=== PATIENT | male | born 1940 | race Caucasian/White ===

== ENCOUNTER 2018-11-07 15:35 | Emergency (ER) | payer OTHER ==
[~2018-11-07] VITALS: Ht 177.8 cm; Wt 65.8 kg
[2018-11-07 16:47] LABS: BASOPHILS 0.5 % (0.0-2.0); EOSINOPHILS 3.1 % (0.0-3.0); LYMPHOCYTES 33.7 % (24.0-44.0); MCH 30.1 pg (26.0-34.0); MCHC 33.4 g/dL (28.0-37.0); MCV 90.1 fL (80.0-100.0); MONOCYTES 7.2 % (1.0-8.0); PLATELET COUNT 241 thou/uL (150-400); POLYS 55.5 % (36.0-66.0); RBC 3.33 mil/uL (4.50-6.00); RDW 14.8 % (10.5-14.5); WBC 5.4 thou/uL (4.0-11.0)
[2018-11-07 16:52] LABS: ANION GAP 8 mmol/L (7-16); BUN 28 mg/dL (7-18); CALCIUM 9.5 mg/dL (8.5-10.1); CHLORIDE 105 mmol/L (98-107); CO2 32 mmol/L (21-32); GLUCOSE 87 mg/dL (74-106); POTASSIUM 4.5 mmol/L (3.5-5.1); SODIUM 145 mmol/L (136-145)
[2018-11-07 16:57] LABS: ALBUMIN 3.2 g/dL (3.4-5.0); SGOT 23 U/L (15-37); TOTAL BILIRUBIN 0.3 mg/dL (<0.1-1.0); TOTAL PROTEIN 6.8 g/dL (6.4-8.2)
[2018-11-07 16:58] LABS: SGPT < 6 U/L (30-65)
[2018-11-07 17:52] LABS: URINE BILIRUBIN NEGATIVE (Negative); URINE BLOOD NEGATIVE (Negative); URINE CLARITY CLEAR; URINE COLOR YELLOW; URINE GLUCOSE-RANDOM* NEGATIVE (Negative); URINE KETONES NEGATIVE (Negative); URINE LEUKOCYTES-REFLEX NEGATIVE (Negative); URINE NITRITE-REFLEX NEGATIVE (Negative); URINE PROTEIN (DIPSTICK) NEGATIVE (Negative); URINE SPECIFIC GRAVITY 1.015 (1.005-1.035); URINE UROBILINOGEN 0.2 E.U./dl (0.2-1.0)
[2018-11-07] MEDS ORDERED: RYTARY ER 48.71 EACH PO (18:50)
[2018-11-07] MEDS ORDERED: ROPINIROLE HCL3 MG PO (18:51)
[2018-11-07] MEDS ORDERED: PROTONIX40 M1 PO (18:51)
[2018-11-07] MEDS ORDERED: COSOPT OCUMETER10 M1 (18:51)
[2018-11-07] MEDS ORDERED: TRAVATAN Z2.5 ML OPHTHALMIC (18:52)
[2018-11-07] MEDS ORDERED: COSOPT OCUMETER10 M1 OPHTHALMIC (18:57)
[2018-11-07] MEDS ORDERED: SELEGILINE HCL5 M1 PO (18:58)
[2018-11-07] MEDS ORDERED: SEROQUEL 25 MG25 M1 PO ×2 (18:59→19:00)
[2018-11-08 15:15] VITALS: BP 91/51
--- NOTE | 2018-11-08 23:46 | EKG ---
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 : 1940 Requested By: Nayana Hu Order Number: [id number] MD: Hung Krause Measurements Intervals [place] Rate: 153 P: 72 ID: [id number] QRS: 13 QRSD: 114 T: -7 QT: 420 QTc: 671 Interpretive Statements Sinus Rhythm Ac noise Nonspecific ST/T wave changes Borderline intraventricular conduction delay No previous ECG available for comparison Electronically Signed On 11-08-2018 23:46:06 CDT by Hung Krause [email or web address] ��������������������������������������������� <ELECTRONICALLY SIGNED> ���������������������������������������� By: Hung Krause MD ��������������������������������������������� 11/08/18 2346 0056 0056 Hung Krause MD /[email or web address]
== END 2018-11-08 15:15 | disposition short-term general hospital (02) ==
LOC: ER 15:35
PROVIDERS: Physician Assistant
DX: F05 Delirium due to known physiological condition (principal); G20 Parkinson's disease; R45.6 Violent behavior; F03.90 Unspecified dementia, unspecified severity, without behavioral disturbance, psychotic disturbance, mood disturbance, and anxiety; R45.1 Restlessness and agitation; F29 Unspecified psychosis not due to a substance or known physiological condition; Z88.8 Allergy status to other drugs, medicaments and biological substances